=== PATIENT | female | born 1940 | race Two or more races ===

== ENCOUNTER 2018-06-08 10:10 | Outpatient (CLI) | payer OTHER ==
[~2018-06-08 10:10] MED LIST: EVISTA60 MG; ORPH100T PO; PAXIL20 MG
== END 2018-06-08 10:15 | disposition home or self-care (01) ==
LOC: RAD 501 10:10
DX: M20.41 Other hammer toe(s) (acquired), right foot (principal); M20.42 Other hammer toe(s) (acquired), left foot

== ENCOUNTER 2018-06-30 09:04 | Outpatient (CLI) | payer OTHER | END 2018-06-30 09:09 | disposition home or self-care (01) | LOC: RAD 501 09:04 | DX: Z01.812 Encounter for preprocedural laboratory examination (principal) ==

== ENCOUNTER 2018-07-22 10:28 | Outpatient (CLI) | payer OTHER | END 2018-07-22 10:32 | disposition home or self-care (01) | LOC: RAD 501 10:28 | DX: M79.672 Pain in left foot (principal) ==

== ENCOUNTER 2021-06-13 10:54 | Outpatient (CLI) | payer OTHER | END 2021-06-13 10:56 | disposition home or self-care (01) | LOC: RAD 10:54 | PROVIDERS: ATTEND Podiatrist | DX: M20.32 Hallux varus (acquired), left foot (principal) ==

== ENCOUNTER 2023-12-24 10:55 | Outpatient (CLI) | payer OTHER | END 2023-12-24 11:04 | disposition home or self-care (01) | LOC: RAD 10:55 | PROVIDERS: ATTEND Podiatrist | DX: M20.32 Hallux varus (acquired), left foot (principal) ==

== ENCOUNTER → 2024-07-23 | Emergency (ER) | payer OTHER ==
[~2024-07-23] VITALS: Ht 167.6 cm; Wt 68.9 kg
[~2024-07-23] MED LIST changes: +PAXIL20 MG PO
[2024-07-23 16:14] LABS: BASO % 0.6 % (0.1-1.2); EOS # 0.03 (0.04-0.54); EOS % 0.4 % (0.7-7.0); HEMOGLOBIN 14.2 g/dL (11.2-15.7); LYMPH # 1.64 (1.18-3.74); LYMPH % 19.9 % (19.3-53.1); MEAN CORPUSCULAR HEMOGLOBIN 31.6 pg (25.6-32.2); MONO # 0.71 (0.24-0.82); MONO % 8.6 % (4.7-12.5); NEUT % 70.1 % (34.0-71.1); PLATELET COUNT 256 K/uL (163-369); RED BLOOD COUNT 4.49 M/uL (3.93-5.22); RED CELL DISTRIBUTION WIDTH 14.1 % (11.6-14.4)
[2024-07-23 16:30] LABS: PARTIAL THROMBOPLASTIN TIME 27.1 SECONDS (22.0-34.0); PROTHROMBIN TIME 10.9 SECONDS (9.0-11.5)
[2024-07-23 16:39] LABS: ALBUMIN 4.1 gm/dL (3.4-5.0); BILIRUBIN TOTAL 0.25 mg/dL (0.3-1.2); CALCIUM 9.1 mg/dL (8.5-10.1); CREATININE SERUM 0.77 mg/dL (0.55-1.02); GFR 71.59; GLOBULINA 4.4 G/DL (2.4-3.5); POTASSIUM 3.93 mEq/L (3.5-5.1); TOTAL PROTEIN 8.5 gm/dL (6.4-8.2)
[2024-07-23 20:43] LABS: ABG PH 7.423 (7.35-7.45); ABG PO2 83.6 mmHg (80-100); ABG pCO2 41.6 mmHg (35-45); BASE EXCESS 1.9 mmol/l; BICARBONATE 26.6 mmol/l (23-25); SaO2 96.5 %; Tco2 27.8 mmol/l
[2024-07-23 22:36] LABS: allen test SATISFACTORY; mode ROOM AIR; o2 21 %; puncture site RADIAL RIGHT
== END | disposition left against medical advice (07) ==
LOC: ER 12:04
PROVIDERS: Emergency Medicine
DX: R00.2 Palpitations (principal); R07.89 Other chest pain; Z88.1 Allergy status to other antibiotic agents

== ENCOUNTER 2024-09-23 07:31 | Outpatient (CLI) | payer OTHER | END 2024-09-23 07:33 | disposition home or self-care (01) | LOC: NUCLEAR 07:31 | PROVIDERS: ATTEND Internal Medicine | DX: I20.9 Angina pectoris, unspecified (principal) | CPT/HCPCS: 78452; 93017; A9500; J0153 ==

== ENCOUNTER → 2025-01-16 | Emergency (ER) | payer OTHER | END | disposition left against medical advice (07) | LOC: ER 15:28 | DX: Z53.21 Procedure and treatment not carried out due to patient leaving prior to being seen by health care provider (principal) ==